=== PATIENT | female | born 1950 | race Caucasian/White ===

== ENCOUNTER → 2024-02-07 14:29 | Outpatient (REF) | payer OTHER, SELFPAY | LOC: RAD 14:29 | PROVIDERS: ATTENDING PHYSICIAN Nurse Practitioner Family; FAMILY PHYSICIAN Internal Medicine | DX: M79.642 Pain in left hand (principal) | CPT/HCPCS: 73130 ==

== ENCOUNTER → 2024-07-21 12:33 | Outpatient (REF) | payer OTHER, SELFPAY | LOC: WDC 12:33 | PROVIDERS: ATTENDING PHYSICIAN Internal Medicine | DX: Z12.31 Encounter for screening mammogram for malignant neoplasm of breast (principal) | CPT/HCPCS: 77063; 77067 ==

== ENCOUNTER → 2025-07-27 12:24 | Outpatient (REF) | payer OTHER, SELFPAY | LOC: WDC 12:24 | PROVIDERS: ATTENDING PHYSICIAN Internal Medicine | DX: Z12.31 Encounter for screening mammogram for malignant neoplasm of breast (principal) | CPT/HCPCS: 77063; 77067 ==

== ENCOUNTER 2025-08-08 17:27 | Emergency (ER) | payer OTHER, SELFPAY ==
[2025-08-08 17:29] VITALS: BP 145/66
[2025-08-08 17:49] LABS: Hematocrit 25.5 % (37.0-47.0); Hemoglobin 7.2 g/dL (12.0-16.0); Mean Corp Hgb Conc. 28.2 g/dL (33.0-37.0); Mean Corpuscular Volume 65.2 fL (81.0-99.0); Platelet Count 292 10^3/uL (130-400); Red Cell Dist. Width 19.9 % (11.5-14.5)
[2025-08-08 18:00] LABS: ALT (SGPT) 16 U/L (0-35); AST (SGOT) 24 U/L (14-36); Albumin 4.2 g/dl (3.5-5.0); Alkaline Phosphatase 57 U/L (38-126); Blood Urea Nitrogen 13 mg/dl (7-17); Calcium 8.7 mg/dl (8.4-10.2); Carbon Dioxide 26 mmol/L (22-30); Chloride 104 mmol/L (98-107); Glucose 99 mg/dl (70-99); Potassium 3.6 mmol/L (3.5-5.1); Sodium 137 mmol/L (135-145); Total Protein 7.8 g/dl (6.3-8.2); eGFR > 60.00
[2025-08-08 18:08] VITALS: BMI 26.0
[2025-08-08 18:09] VITALS: BP 124/57
[2025-08-08 18:11] LABS: Nucleated Red Blood Cells % 0 %
[2025-08-08 18:21] LABS: Anisocytosis 2+; Hypochromasia 3+; Macrocytosis 2+; Normal RBC Morphology No; Ovalocytes 1+; Polychromasia 1+; Target Cells 1+
--- NOTE | 2025-08-08 19:23 | ED.GENMED ---
History of Present Illness
General
Chief Complaint: Abnormal Lab Value
Time Seen by Provider: 08/08/25 18:07
History of Present Illness
History of Present Illness:
74-year-old female with history of epilepsy presenting to the emergency department for concern of low hemoglobin. Patient reports she had routine blood tests done through her PCP because she had not seen him in some time. She was called today for
hemoglobin of 7.2. She denies any underlying history of anemia. She denies any significant dyspnea on exertion or chest pain. She denies seeing any blood in her stool. She denies ever requiring a blood transfusion. Denies abdominal pain.
Denies additional acute medical complaints.
Past History
Past History
ED Past Medical History: Hypercholesterolemia, Other (previous fx same ankle. Seizures, arthritis, ) and Other (Sjogren syndrome)
ED Past Surgical History: Cholecystectomy, Orthopedic and Other
Social History
Tobacco: Former smoker
Personal:
Living: with family
Phy Exam
Physical Exam
Physical Exam:
General: Well-appearing, no clinical signs of dehydration, nontoxic and in no acute distress
HEENT: protecting airway
Neck: appears supple
CV: Normal heart rate, regular rhythm
Resp: No accessory muscle use, no increased work of breathing, lungs clear to auscultation bilaterally
Abd: Soft and non-distended, no tenderness to palpation
Extremities: No deformities, no swelling
Neuro: alert, no focal neurologic deficit
: Hemoccult negative brown stool
Rectal: deferred
Psych: Normal affect
Skin: Intact
Course
Orders/Labs/Results
Orders:
Orders
08/08/25 17:38
Complete Blood Count/With Diff Urgent
Comprehensive Metabolic Panel Urgent
08/08/25 18:11
Type And Crossmatch [Type+Screen] Urgent
Abnormal Lab Results
08/08/25
17:38
RBC 3.91 L 10^6/uL
(4.20-5.40)
Hgb 7.2 L g/dL
(12.0-16.0)
Hct 25.5 L %
(37.0-47.0)
MCV 65.2 L fL
(81.0-99.0)
MCH 18.4 L pg
(27.0-31.0)
MCHC 28.2 L g/dL
(33.0-37.0)
RDW 19.9 H %
(11.5-14.5)
Absolute Monos (auto) 1.0 H 10^3/uL
(0.1-0.6)
Monocytes % 14.0 H %
(1.7-9.3)
08/08/25 17:38
08/08/25 17:38
Vital Signs
Initial and Last Documented VS:
Initial Vital Signs
Temp Pulse Resp BP Pulse Ox
98.5 F 85 18 145/66 95
08/08/25 17:29 08/08/25 17:29 08/08/25 17:29 08/08/25 17:29 08/08/25 17:29
Last Documented Vital Signs
Temp Pulse Resp BP Pulse Ox
98.6 F 80 15 124/57 100
08/08/25 18:00 08/08/25 18:45 08/08/25 18:45 08/08/25 18:09 08/08/25 18:45
MDM/Problems Addressed
MDM/Problems Addressed:
74-year-old female with history of epilepsy presenting for outpatient abnormal lab testing with hemoglobin of 7.2. Vital signs are normal.
On exam, patient resting comfortably, no acute distress or discomfort. She is currently asymptomatic. Labs obtained prior to my assessment, demonstrating hemoglobin of 7.2. Patient also with low hematocrit and MCV. Last hemoglobin for comparison
is from 2012, normal at that time. Son reports the last blood counts he has on file was 12.2, however 2019. At this time suspect iron deficiency anemia. Patient Hemoccult negative without concern for acute GI bleed. In addition, no AIDAN, no
tachycardia, no hypotension. No present indication for blood transfusion. In discussion with patient and son at bedside, feel comfortable with disposition home, on iron. Advised starting a stool supplement to avoid constipation. Also explained
the importance of close interval follow-up with primary care doctor to ensure interval improvement. Strict return precautions were communicated to patient and son at bedside who verbalized understanding
*Pulse Oximetry
SaO2: 100
Oxygen Mode of Delivery: Room air
Patient hypoxic: no
*Critical Care Note
Total Time (30-74mins, 75-104mins- exclusive of procedures): Not Applicable
ED Attending Note
-
Portions of this chart may have been created with voice recognition software.� Occasional wrong word or��sound alike� substitutions may have occurred due to the inherent limitations of voice recognition software.
Discharge Plan
Departure
Referrals:
Raman Richter, [Family Provider, Internal Medicine]
Interventions
Interventions:
*Risk Screen - Suicide Last Done: 08/08/25 17:31
*General Assessment Last Done: 08/08/25 17:31
*Neglect/Abuse Screening Last Done: 08/08/25 17:31
*ED- Fall Risk Assessment Last Done: 08/08/25 18:08
*ED COVID-19 Vaccine History Last Done: 08/08/25 17:31
*ED Influenza Vaccine History Last Done: 08/08/25 17:31
Discharge Date and Time
Print Language: MACEDONIAN
[2025-08-08 20:16] VITALS: BP 141/63
== END 2025-08-08 20:17 | disposition home or self-care (01) ==
LOC: EMR 17:27
PROVIDERS: Emergency Medicine; EMERGENCY PHYSICIAN Student in an Organized Health Care Education/Training Program; FAMILY PHYSICIAN Internal Medicine
DX: D64.9 Anemia, unspecified (principal); E78.00 Pure hypercholesterolemia, unspecified; G40.909 Epilepsy, unspecified, not intractable, without status epilepticus; M35.00 Sjogren syndrome, unspecified; Z87.891 Personal history of nicotine dependence; Z90.49 Acquired absence of other specified parts of digestive tract
CPT/HCPCS: 99283; 80053; 85025; 86850; 86900; 86901

== ENCOUNTER → 2025-08-14 13:47 | Outpatient (REF) | payer OTHER, SELFPAY | LOC: RAD 13:47 | PROVIDERS: ATTENDING PHYSICIAN Internal Medicine | DX: M25.572 Pain in left ankle and joints of left foot (principal) | CPT/HCPCS: 73610 ==